=== PATIENT | male | born 1960 | race Two or more races ===

== ENCOUNTER → 2017-09-28 | Outpatient (CLI) | payer OTHER | END | disposition home or self-care (01) | LOC: SONOGRAMA 09:24 → MAMO-SONO 10:15 | DX: N40.1 Benign prostatic hyperplasia with lower urinary tract symptoms (principal) ==

== ENCOUNTER 2020-09-16 08:37 | Outpatient (CLI) | payer OTHER | END 2020-09-16 08:52 | disposition home or self-care (01) | LOC: SONOGRAMA 08:37 | PROVIDERS: ATTEND Urology | DX: N40.1 Benign prostatic hyperplasia with lower urinary tract symptoms (principal) ==

== ENCOUNTER 2022-08-07 08:42 | Outpatient (CLI) | payer OTHER | END 2022-08-07 08:56 | disposition home or self-care (01) | LOC: SONOGRAMA 08:42 | PROVIDERS: ATTEND Urology | DX: N40.1 Benign prostatic hyperplasia with lower urinary tract symptoms (principal) ==

== ENCOUNTER 2024-05-28 07:04 | Day surgery (SDC) | payer OTHER ==
[~2024-05-28 07:04] MED LIST: 8HR ARTHRITIS650 M1 PO; GLUMETZA500 MG PO; LIPITOR20 MG; MULTI VITAMIN1 EACH PO; TAMS0.4C PO; TOLTERODINE TART4 MG PO; TOPAMAX25 MG PO
[2024-05-28] MEDS ORDERED: CEFTRIAXONE SODIUM 2,000 MG VIAL ONE (09:22)
[2024-05-28] MEDS ORDERED: METRONIDAZOLE/SODIUM CHLORIDE 500 MG/100 ML PIGGYBACK IV ONE (09:23)
[2024-05-28] MEDS ORDERED: DIBUCAINE 30 GM TUBE ONE (10:34)
[2024-05-28] MEDS ORDERED: HEMOSTATIC MATRIX 1 KIT KIT TOP ONE (10:35)
[2024-05-28] MEDS ORDERED: POVIDONE-IODINE 118 ML BOTT TOP ONE (10:35)
[2024-05-28] MEDS ORDERED: MORPHINE SULFATE 4 MG/ML VIAL IV ONE (15:50)
== END 2024-05-28 16:35 | disposition home or self-care (01) ==
LOC: CIR.AMB 07:04
PROVIDERS: ATTEND Colon & Rectal Surgery
DX: K60.321 Anal fistula, complex, initial (principal); Z88.6 Allergy status to analgesic agent

== ENCOUNTER 2024-06-07 13:34 | Emergency (ER) | payer OTHER ==
[~2024-06-07] VITALS: Ht 167.6 cm; Wt 68.5 kg
== END 2024-06-07 16:39 | disposition home or self-care (01) ==
LOC: ER 13:34
DX: K64.4 Residual hemorrhoidal skin tags (principal); Z88.6 Allergy status to analgesic agent